=== PATIENT | male | born 1980 | race Caucasian/White ===

== ENCOUNTER 2019-11-18 15:44 | Inpatient (IN) | payer OTHER ==
[~2019-11-18] VITALS: Ht 167.6 cm; Wt 96.0 kg
[2019-11-18 17:57] LABS: Hematocrit 42.6 % (41.0-53.0); Hemoglobin 14.6 g/dL (13.5-17.5); Mean Corpuscular Hemoglobin 28.5 pg (28.0-32.0); Mean Corpuscular Hgb Conc. 34.2 g/dL (32.0-36.0); Mean Corpuscular Volume 83.3 fL (80.0-100.0); Platelet Count (auto) 346 10^3/uL (140-450); Red Blood Cells 5.11 10^6/uL (4.5-5.90); Red Cell Distribution Width 16.8 % (11.8-14.3); White Blood Cell 12.1 10^3/uL (4.4-10.8)
[2019-11-18 18:00] LABS: Blast Cells 0; Metamyelocytes % 0; Myelocytes % 0; Promyelocytes % 0; Reactive Lymphocytes 0
[2019-11-18 18:12] LABS: Band Neutrophils % (manual) 1; Basophils % (manual) 1 (0.0-2.0); Eosinophils % (manual) 1 (0-7); Lymphocytes % (manual) 15 (10.0-50.0); Monocytes % (manual) 15 (0-12)
[2019-11-18 18:18] LABS: Alanine Aminotransferase 63 U/L (16-61); Albumin 4.3 g/dL (3.4-5.0); Anion Gap 8 (5-15); Aspartate Aminotransferase 30 U/L (15-37); Blood Urea Nitrogen 31 mg/dL (7-18); Calcium 8.6 mg/dL (8.5-10.1); Carbon Dioxide 22 mmol/L (21-32); Chloride 109 mmol/L (98-107); GFR African American 54 mL/min; GFR Non-African American 44 mL/min; Glucose 106 mg/dL (74-106); Magnesium 2.3 mg/dL (1.6-2.6); Potassium 4.1 mmol/L (3.5-5.1); Sodium 139 mmol/L (136-145)
[2019-11-18 18:23] LABS: Alkaline Phosphatase 65 U/L (45-117); Bilirubin, Total 0.4 mg/dL (0.2-1.0); Total Protein 8.3 g/dL (6.4-8.2)
[2019-11-19] MEDS ORDERED: MORPHINE SULF INJ 2 MG/ML SYRINGE 1ML IV PRN (04:45)
[2019-11-19] MEDS ORDERED: NITROGLYCERIN 0.4 MG SL TAB SL PRN (04:45)
[2019-11-19] MEDS ORDERED: ACETAMINOPHEN 325 MG TAB PO PRN (04:45)
[2019-11-19] MEDS ORDERED: ONDANSETRON HCL 4 MG/2 ML VIAL IV PRN (04:45)
[2019-11-19] MEDS ORDERED: TEMAZEPAM 15 MG CAP PO PRN (04:45)
[2019-11-19] MEDS ORDERED: hydrALAZINE HCL 25 MG TAB PO PRN (05:15)
[2019-11-19 07:11] LABS: Calcium 8.5 mg/dL (8.5-10.1); Potassium 4.1 mmol/L (3.5-5.1)
[2019-11-19 07:16] LABS: BUN/Creatinine Ratio 20.1
[2019-11-19 08:45] LABS: Hematocrit 40.1 % (41.0-53.0); Hemoglobin 13.5 g/dL (13.5-17.5); Mean Corpuscular Hemoglobin 28.2 pg (28.0-32.0); Mean Corpuscular Hgb Conc. 33.6 g/dL (32.0-36.0); Mean Corpuscular Volume 84.1 fL (80.0-100.0); Platelet Count (auto) 288 10^3/uL (140-450); Red Blood Cells 4.77 10^6/uL (4.5-5.90); White Blood Cell 9.7 10^3/uL (4.4-10.8)
[2019-11-19] MEDS ORDERED: SODIUM CHLORIDE 0.9% 1,000 ML IV ONE (08:45)
[2019-11-19 08:50] VITALS: BP 155/106
[2019-11-19 08:56] LABS: Cholesterol 129 mg/dL (< 200)
[2019-11-19 08:58] LABS: HDL Cholesterol 40 mg/dL (40-59); LDL Cholesterol 69 mg/dL (< 100); Triglycerides 144 mg/dL (< 150)
[2019-11-19 09:08] LABS: Basophils % (manual) 0 (0.0-2.0); Blast Cells 0; Metamyelocytes % 0; Myelocytes % 0; Promyelocytes % 0; Reactive Lymphocytes 0
[2019-11-19 09:22] LABS: INR 1.01 (0.9-1.15)
[2019-11-19 09:23] LABS: Partial Thromboplastin Time 26.5 sec (23.64-32.05)
[2019-11-19 09:33] LABS: Urine WBC None Seen /hpf (0 - 3)
[2019-11-19 10:00] LABS: Urine Bacteria NONE SEEN /hpf (None Seen); Urine Blood Negative /uL (Negative); Urine Specific Gravity 1.021 (1.001-1.035)
[2019-11-19 10:09] LABS: Alcohol, Urine < 3.0 mg/dL (0-10); Amphetamine Screen, Urine NEGATIVE (NEGATIVE); Barbiturate Scree,Urine NEGATIVE (NEGATIVE); Benzodiazephine Screen, Urine NEGATIVE (NEGATIVE); Cannabinoid Screen, Urine NEGATIVE (NEGATIVE); Cocaine Screen, Urine NEGATIVE (NEGATIVE); Creatinine, Urine 160 mg/dL (30.0-125.0); Opiate Scree,Urine NEGATIVE (NEGATIVE); Phencyclidine Screen, Urine NEGATIVE (NEGATIVE); Sodium Urine 78 mmol/L (40-220)
[2019-11-19] MEDS: ASPirin 81 mg TAB PO SCH (10:53)
[2019-11-19] MEDS: FUROSEMIDE 20 MG TAB PO SCH (10:53)
[2019-11-19] MEDS: FAMOTIDINE 20 MG TAB PO SCH ×2 (10:54→22:57)
[2019-11-19] MEDS: METOPROLOL TARTRATE 50 MG TAB PO SCH ×2 (10:54→21:50)
[2019-11-19] MEDS: ENOXAPARIN SOD 40 MG/0.4 ML SYRINGE SC SCH (10:55)
[2019-11-19] MEDS: NIFEdipine ER 30 MG TAB PO SCH (10:55)
[2019-11-19 11:39] LABS: Band Neutrophils % (manual) 5; Eosinophils % (manual) 4 (0-7); Lymphocytes % (manual) 18 (10.0-50.0); Monocytes % (manual) 2 (0-12)
[2019-11-19 12:50] VITALS: BP 151/98
[2019-11-19] MEDS ORDERED: NIFE90TA49 PO (12:50)
[2019-11-19] MEDS ORDERED: HYDR50TA15 PO (12:50)
[2019-11-19] MEDS ORDERED: MET50T PO (12:50)
[2019-11-19] MEDS ORDERED: ATO40T PO (12:50)
[2019-11-19] MEDS ORDERED: ASPI-404 PO (12:50)
[2019-11-19 17:00] VITALS: BP 142/96
[2019-11-19 22:00] VITALS: BP 139/89
[2019-11-19] MEDS ORDERED: ATORVASTATIN 20 MG TAB PO SCH (22:00)
[2019-11-20 05:00] VITALS: BP 148/92
[2019-11-20 06:43] LABS: Hematocrit 42.4 % (41.0-53.0); Hemoglobin 14.6 g/dL (13.5-17.5); Mean Corpuscular Hemoglobin 28.9 pg (28.0-32.0); Mean Corpuscular Hgb Conc. 34.5 g/dL (32.0-36.0); Mean Corpuscular Volume 83.8 fL (80.0-100.0); Platelet Count (auto) 275 10^3/uL (140-450); Red Blood Cells 5.06 10^6/uL (4.5-5.90); Red Cell Distribution Width 16.7 % (11.8-14.3); White Blood Cell 9.3 10^3/uL (4.4-10.8)
[2019-11-20 07:00] VITALS: BP 148/105
[2019-11-20 07:09] LABS: BUN/Creatinine Ratio 18.2
[2019-11-20 07:16] LABS: Band Neutrophils % (manual) 0; Basophils % (manual) 0 (0.0-2.0); Blast Cells 0; Metamyelocytes % 0; Myelocytes % 0; Promyelocytes % 0; Reactive Lymphocytes 0
[2019-11-20] MEDS ORDERED: LIDOCAINE 2%HCL (LOCAL ANESTH.) INJ 20ML MDV ONE (07:26)
[2019-11-20] MEDS ORDERED: IOHEXOL 350 MG/ML 100ML IJ ONE ×2 (07:27→07:45)
[2019-11-20 07:32] LABS: Eosinophils % (manual) 2 (0-7); Lymphocytes % (manual) 22 (10.0-50.0); Monocytes % (manual) 10 (0-12)
[2019-11-20] MEDS ORDERED: MIDAZOLAM HCL 1MG/1ML-2 ML VIAL ONE (07:38)
[2019-11-20] MEDS ORDERED: fentaNYL CITRATE 100 MCG/2 ML VL ONE (07:38)
[2019-11-20] MEDS ORDERED: ANGIOMAX 250 MG VIAL IV ONE (07:38)
[2019-11-20] MEDS ORDERED: SODIUM CHL 0.9% 0 ML ONE (07:39)
[2019-11-20 08:41] VITALS: BP 148/105
[2019-11-20] MEDS: ENOXAPARIN SOD 40 MG/0.4 ML SYRINGE SC SCH (09:00)
[2019-11-20] MEDS: FUROSEMIDE 20 MG TAB PO SCH (09:38)
[2019-11-20] MEDS: ASPirin 81 mg TAB PO SCH (09:38)
[2019-11-20] MEDS: METOPROLOL TARTRATE 50 MG TAB PO SCH (09:39)
[2019-11-20] MEDS: FAMOTIDINE 20 MG TAB PO SCH (09:39)
[2019-11-20] MEDS: NIFEdipine ER 30 MG TAB PO SCH (09:39)
[2019-11-20] MEDS ORDERED: METOPROLOL TARTRATE 50 MG TAB PO ONE (10:45)
[2019-11-20] MEDS ORDERED: NIFE1TAB31 PO (12:17)
[2019-11-20] MEDS ORDERED: MET50T PO (12:17)
[2019-11-20] MEDS ORDERED: HYDR50TA15 PO (12:17)
[2019-11-20 12:30] VITALS: BP 138/87
[2019-11-20 13:03] VITALS: BP 138/87
[2019-11-20 16:52] VITALS: BP 145/85
[2019-11-20] MEDS ORDERED: METOPROLOL TARTRATE 50 MG TAB PO SCH (22:00)
[2019-11-21] MEDS ORDERED: NIFEdipine ER 30 MG TAB PO SCH (10:00)
== END 2019-11-20 18:20 | disposition home or self-care (01) | DRG 286 ==
LOC: ER 15:44 → TELE 15:45 → TELE-WESTW 11-19 09:01
PROVIDERS: ADMIT Nurse Practitioner; ATTEND Internal Medicine
PROC: B3151ZZ Fluoroscopy of Bilateral Common Carotid Arteries using Low Osmolar Contrast (ICD-10-PCS; principal; 2019-11-20)
PROC: B31N1ZZ Fluoroscopy of Other Upper Arteries using Low Osmolar Contrast (ICD-10-PCS; 2019-11-20)
PROC: B3181ZZ Fluoroscopy of Bilateral Internal Carotid Arteries using Low Osmolar Contrast (ICD-10-PCS; 2019-11-20)
PROC: B31C1ZZ Fluoroscopy of Bilateral External Carotid Arteries using Low Osmolar Contrast (ICD-10-PCS; 2019-11-20)
PROC: 4A023N7 Measurement of Cardiac Sampling and Pressure, Left Heart, Percutaneous Approach (ICD-10-PCS; 2019-11-20)
PROC: B2111ZZ Fluoroscopy of Multiple Coronary Arteries using Low Osmolar Contrast (ICD-10-PCS; 2019-11-20)
PROC: B2151ZZ Fluoroscopy of Left Heart using Low Osmolar Contrast (ICD-10-PCS; 2019-11-20)
DX: I16.0 Hypertensive urgency (principal); N17.0 Acute kidney failure with tubular necrosis; E66.9 Obesity, unspecified; N18.3 Chronic kidney disease, stage 3 (moderate); E78.5 Hyperlipidemia, unspecified; E11.22 Type 2 diabetes mellitus with diabetic chronic kidney disease; E11.40 Type 2 diabetes mellitus with diabetic neuropathy, unspecified; Z82.49 Family history of ischemic heart disease and other diseases of the circulatory system; Z68.34 Body mass index [BMI] 34.0-34.9, adult; Z86.73 Personal history of transient ischemic attack (TIA), and cerebral infarction without residual deficits; Z87.891 Personal history of nicotine dependence; Z80.8 Family history of malignant neoplasm of other organs or systems; R80.9 Proteinuria, unspecified
CPT/HCPCS: 36223; 36224; 36227; 36415; 71046; 80048; 80053; 80061; 80307; 81001; 82570; 83036; 83735; 83880; 84156; 84300; 84443; 84484; 85007; 85027; 85610; 85730; 86850; 86900; 86901; 93005; 93306; 93458; 99152; G0378; J2250